=== PATIENT | female | born 1955 ===

== ENCOUNTER → 2021-02-22 | Outpatient (CLI) | payer OTHER | END | disposition home or self-care (01) | LOC: LAB SHORT 02-18 17:56 | DX: R35.0 Frequency of micturition (principal) | CPT/HCPCS: 87077; 87086; 87147; 87186 ==

== ENCOUNTER → 2021-12-14 | Outpatient (CLI) | payer OTHER | LOC: LAB SHORT 10:24 → LAB 10:24 | DX: N39.0 Urinary tract infection, site not specified (principal) | CPT/HCPCS: 87086 ==